=== PATIENT | male | born 1945 | race Caucasian/White ===

== ENCOUNTER 2017-06-11 11:31 | Inpatient (IN) | payer OTHER, MEDICARE ==
[~2017-06-11] VITALS: Ht 175.3 cm; Wt 68.0 kg
[2017-06-11 12:01] LABS: BASOPHILS % (AUTO) 0.1 % (0-1); EOSINOPHILS # (AUTO) 0.2 X10'3 (0-0.9); EOSINOPHILS % (AUTO) 1.5 % (0-6); HEMATOCRIT 45.9 % (42.0-52.0); HEMOGLOBIN 15.1 g/dl (14.0-17.9); LYMPHOCYTES # (AUTO) 0.7 X10'3 (1.1-4.8); LYMPHOCYTES % (AUTO) 4.4 % (21-51); MEAN CORPUSCULAR HEMOGLOBIN 27.8 PG (27.0-31.0); MEAN CORPUSCULAR VOLUME 84.3 FL (78-98); MEAN PLATELET VOLUME 8.3 FL (7.4-10.4); MONOCYTES # (AUTO) 0.7 X10'3 (0-0.9); MONOCYTES % (AUTO) 4.4 % (2-12); NEUTROPHILS # (AUTO) 14.2 X10'3 (1.8-7.7); NEUTROPHILS % (AUTO) 89.6 % (42-75); PLATELET COUNT 215 X10'3 (140-440); RED BLOOD COUNT 5.45 X10'6 (4.70-6.10); WHITE BLOOD COUNT 15.8 X10'3 (4.5-11.0)
[2017-06-11 12:12] LABS: PARTIAL THROMBOPLASTIN TIME 31 SECONDS (22-32)
[2017-06-11 12:21] LABS: CLARITY,URINE Clear (Clear); COLOR,URINE Yellow (Yellow); GLUCOSE, URINE Negative (Neg); KETONES,URINE 80 mg/dl (Neg); LEUKOCYTE ESTERASE ,URINE Negative (Neg); NITRITES, URINE Negative (Neg); OCCULT BLOOD,URINE Negative (Neg); PH,URINE 5.5 (4.8-8.0); PROTEIN,URINE Negative (Neg)
[2017-06-11 12:25] LABS: ALANINE AMINOTRANSFERASE 26 U/L (12-78); ALBUMIN 3.3 G/DL (3.4-5.0); ALBUMIN/GLOBULIN RATIO 0.7 (1.1-1.5); ALKALINE PHOSPHATASE 110 IU/L (46-116); ANION GAP 15 (8-16); ASPARTATE AMINO TRANSFERASE 26 U/L (10-37); BILIRUBIN,TOTAL 0.9 MG/DL (0.1-1.0); BLOOD UREA NITROGEN 20 MG/DL (7-18); BUN/CREATININE RATIO 23.5 (5.4-32.0); CALCIUM 9.5 MG/DL (8.5-10.1); CHLORIDE 96 MMOL/L (99-107); CREATININE 0.85 MG/DL (0.60-1.10); GLUCOSE 139 MG/DL (70-104); MAGNESIUM 1.5 MG/DL (1.5-2.4); POTASSIUM 4.1 MMOL/L (3.5-5.1); SODIUM 132 MMOL/L (135-145); TOTAL CARBON DIOXIDE 21.5 MMOL/L (24-32); TOTAL PROTEIN 7.9 G/DL (6.4-8.2); eGFR 89 ML/MIN
[2017-06-11 12:26] LABS: UA COLLECTION TYPE CLN CATCH MIDSTREAM
[2017-06-11] MEDS ORDERED: normal saline 1000ML IV soln IVB ONE (12:30)
[2017-06-11] MEDS ORDERED: benzonatate 100mg capsule PO ONE (12:30)
[2017-06-11] MEDS ORDERED: aspirin 81mg tab.chew PO ONE (12:30)
[2017-06-11 13:08] LABS: D-DIMER 12.66 MG/L FEU (0-0.50)
[2017-06-11] MEDS ORDERED: iohexol 350MG/ML 100ml bottle IV ONE (14:11)
[2017-06-11] MEDS ORDERED: azithromycin/NS 500mg/250ml 250 ML IV ONE (15:25)
[2017-06-11] MEDS ORDERED: CefTRIAXone 2gm/NS 100ml IVPB 100 ML IV ONE (15:25)
[2017-06-11] MEDS ORDERED: magnesium hydroxide 30ml (MOM) UD suspension PO PRN ×2 (16:45→17:40)
[2017-06-11] MEDS ORDERED: mag hydrox/Alum hydrox/simeth 30ml oral suspension PO PRN ×2 (16:45→17:40)
[2017-06-11] MEDS ORDERED: ondansetron/PF 4mg/2ml inj IV PRN ×2 (16:45→17:40)
[2017-06-11] MEDS ORDERED: acetaminophen 325mg tablet PO PRN ×3 (16:45→17:40)
[2017-06-11] MEDS ORDERED: morphine 4 MG/ML inj SYRINge IV PRN ×2 (17:40)
[2017-06-11] MEDS ORDERED: HYDROcodone/acetaminophen 10/325mg tab PO PRN (17:40)
[2017-06-11] MEDS ORDERED: potassium Cl 40MEQ/NS 500ml 500 ML IV PRN ×2 (17:40)
[2017-06-11] MEDS ORDERED: magnesium 4gm in 100ml NS 100 ML IV PRN (17:40)
[2017-06-11] MEDS ORDERED: magnesium Cl slow-release 64mg tablet PO PRN (17:40)
[2017-06-11] MEDS ORDERED: methylPREDNISolone sod succ 125mg/2ml vial IV ONE (17:40)
[2017-06-11] MEDS ORDERED: potassium Cl 20 mEq SR tablet PO PRN ×2 (17:40)
[2017-06-11] MEDS ORDERED: magnesium 2GM in 50ml NS 50 ML IV PRN (17:40)
[2017-06-11] MEDS ORDERED: HYDROcodone/acetaminophen 5mg/325mg tablet PO PRN (17:40)
[2017-06-11] MEDS: K and/or MAG REPLACEMENT MC SCH (17:40)
[2017-06-11 18:46] LABS: INR 1.1 INR; PROTHROMBIN TIME 11.1 SECONDS (9.0-12.0)
[2017-06-11] MEDS: ipratropium/albuterol 3ml nebule NEB SCH ×2 (18:46→23:22)
[2017-06-11 19:00] LABS: MAGNESIUM 1.4 MG/DL (1.5-2.4)
[2017-06-11] MEDS: heparin, porcine 5000 units/ml vial SQ SCH (20:04)
[2017-06-11] MEDS: normal saline 1000ml 1,000 ML IV SCH (20:07)
[2017-06-11] MEDS ORDERED: temazepam 15mg capsule PO PRN (21:00)
[2017-06-12 02:30] VITALS: BP 139/64
[2017-06-12] MEDS: ipratropium/albuterol 3ml nebule NEB SCH ×5 (02:44→23:50)
[2017-06-12] MEDS: normal saline 1000ml 1,000 ML IV SCH ×2 (03:38→10:35)
[2017-06-12 05:41] LABS: ALBUMIN 2.7 G/DL (3.4-5.0); ANION GAP 16 (8-16); BLOOD UREA NITROGEN 16 MG/DL (7-18); BUN/CREATININE RATIO 21.3 (5.4-32.0); CALCIUM 8.5 MG/DL (8.5-10.1); CHLORIDE 101 MMOL/L (99-107); CREATININE 0.75 MG/DL (0.60-1.10); GLUCOSE 161 MG/DL (70-104); INR 1.1 INR; MAGNESIUM 2.5 MG/DL (1.5-2.4); POTASSIUM 3.6 MMOL/L (3.5-5.1); PROTHROMBIN TIME 11.1 SECONDS (9.0-12.0); SODIUM 137 MMOL/L (135-145); TOTAL CARBON DIOXIDE 19.9 MMOL/L (24-32); eGFR > 90 ML/MIN
[2017-06-12 05:45] LABS: BASOPHILS % (AUTO) 0 % (0-1); EOSINOPHILS # (AUTO) 0.1 X10'3 (0-0.9); EOSINOPHILS % (AUTO) 1.1 % (0-6); HEMATOCRIT 41.3 % (42.0-52.0); HEMOGLOBIN 13.9 g/dl (14.0-17.9); LYMPHOCYTES # (AUTO) 0.3 X10'3 (1.1-4.8); LYMPHOCYTES % (AUTO) 3.1 % (21-51); MEAN CORPUSCULAR HEMOGLOBIN 28.3 PG (27.0-31.0); MEAN CORPUSCULAR HGB CONC 33.8 % (33.0-36.5); MEAN CORPUSCULAR VOLUME 83.6 FL (78-98); MEAN PLATELET VOLUME 8.9 FL (7.4-10.4); MONOCYTES # (AUTO) 0.1 X10'3 (0-0.9); MONOCYTES % (AUTO) 0.6 % (2-12); NEUTROPHILS # (AUTO) 10.9 X10'3 (1.8-7.7); NEUTROPHILS % (AUTO) 95.2 % (42-75); PLATELET COUNT 202 X10'3 (140-440); RED BLOOD COUNT 4.93 X10'6 (4.70-6.10); RED CELL DISTRIBUTION WIDTH 14.2 % (11.5-14.5); WHITE BLOOD COUNT 11.4 X10'3 (4.5-11.0)
[2017-06-12 07:01] LABS: HEMOGLOBIN A1C 6.6 % (4.5-6.2)
[2017-06-12 07:19] VITALS: BP 138/74
[2017-06-12] MEDS: K and/or MAG REPLACEMENT MC SCH (07:24)
[2017-06-12] MEDS: cefTRIAXone 1g/NS 100ml IVPB 100 ML IV SCH (07:40)
[2017-06-12] MEDS: heparin, porcine 5000 units/ml vial SQ SCH ×2 (07:46→19:55)
[2017-06-12] MEDS: azithromycin/NS 500mg/250ml 250 ML IV SCH (09:09)
[2017-06-12 11:00] VITALS: BP 128/67
[2017-06-12] MEDS ORDERED: METF750T2 PO (12:26)
[2017-06-12] MEDS ORDERED: LOSA25TA96 PO (12:29)
[2017-06-12] MEDS ORDERED: ATOR20TA PO (12:29)
[2017-06-12] MEDS: lactobacillus rhamnosus 10,000 MMU CELLS/CAPSULE PO SCH (19:54)
[2017-06-12 20:00] VITALS: BP 133/68
[2017-06-13] VITALS (7 sets, daily range): BP systolic 117–161; BP diastolic 62–90
[2017-06-13] MEDS: normal saline 1000ml 1,000 ML IV SCH ×2 (01:56→09:38)
[2017-06-13] MEDS: ipratropium/albuterol 3ml nebule NEB SCH ×6 (03:47→23:20)
[2017-06-13 04:48] LABS: BASOPHILS % (AUTO) 0.1 % (0-1); EOSINOPHILS # (AUTO) 0.3 X10'3 (0-0.9); EOSINOPHILS % (AUTO) 1.4 % (0-6); HEMATOCRIT 38.8 % (42.0-52.0); LYMPHOCYTES # (AUTO) 1.1 X10'3 (1.1-4.8); LYMPHOCYTES % (AUTO) 5.8 % (21-51); MEAN CORPUSCULAR HGB CONC 33.5 % (33.0-36.5); MEAN CORPUSCULAR VOLUME 83.7 FL (78-98); MEAN PLATELET VOLUME 8.7 FL (7.4-10.4); MONOCYTES % (AUTO) 5.7 % (2-12); PLATELET COUNT 205 X10'3 (140-440); RED BLOOD COUNT 4.64 X10'6 (4.70-6.10); RED CELL DISTRIBUTION WIDTH 14.6 % (11.5-14.5); WHITE BLOOD COUNT 18.4 X10'3 (4.5-11.0)
[2017-06-13 05:08] LABS: PROTHROMBIN TIME 10.4 SECONDS (9.0-12.0)
[2017-06-13 05:30] LABS: ALBUMIN 2.5 G/DL (3.4-5.0); ANION GAP 11 (8-16); BLOOD UREA NITROGEN 18 MG/DL (7-18); BUN/CREATININE RATIO 23.4 (5.4-32.0); CALCIUM 8.4 MG/DL (8.5-10.1); CHLORIDE 109 MMOL/L (99-107); CREATININE 0.77 MG/DL (0.60-1.10); GLUCOSE 97 MG/DL (70-104); MAGNESIUM 2.2 MG/DL (1.5-2.4); POTASSIUM 3.8 MMOL/L (3.5-5.1); SODIUM 143 MMOL/L (135-145); TOTAL CARBON DIOXIDE 22.8 MMOL/L (24-32); eGFR > 90 ML/MIN
[2017-06-13] MEDS: K and/or MAG REPLACEMENT MC SCH (07:11)
[2017-06-13] MEDS: heparin, porcine 5000 units/ml vial SQ SCH (07:42)
[2017-06-13] MEDS: azithromycin/NS 500mg/250ml 250 ML IV SCH (07:42)
[2017-06-13] MEDS: cefTRIAXone 1g/NS 100ml IVPB 100 ML IV SCH (07:42)
[2017-06-13] MEDS: lactobacillus rhamnosus 10,000 MMU CELLS/CAPSULE PO SCH ×2 (07:43→20:00)
[2017-06-13] MEDS ORDERED: furosemide 40mg/4ml inj IV ONE ×2 (12:00→17:20)
[2017-06-13 12:05] LABS: ABG BASE EXCESS -2.7 mmol/L (-2.0-3.0); ABG HCO3 21.3 mmol/L (22.0-26.0); ABG OXYGEN SATURATION 92.9 % (95-98); ABG PCO2 (T) 34.5 mmHg (35.0-48.0); ABG PH (T) 7.408 (7.350-7.450); ABG PO2 (T) 65.6 mmHg (83-108); ALLEN'S TEST Positive; FCOHb 0.2 % (0.5-1.5); FLOW 6 L/min; FMetHb 0.2 % (0.3-1.12); FO2Hb 92.5 % (94-100); TOTAL HEMOGLOBIN 13.9 G/dl (14.0-18.0)
[2017-06-13 12:09] LABS: BASOPHILS % (AUTO) 0.2 % (0-1); EOSINOPHILS # (AUTO) 0.5 X10'3 (0-0.9); EOSINOPHILS % (AUTO) 2.6 % (0-6); HEMATOCRIT 40.5 % (42.0-52.0); HEMOGLOBIN 13.6 g/dl (14.0-17.9); LYMPHOCYTES # (AUTO) 0.7 X10'3 (1.1-4.8); LYMPHOCYTES % (AUTO) 3.6 % (21-51); MEAN CORPUSCULAR HEMOGLOBIN 27.6 PG (27.0-31.0); MEAN CORPUSCULAR HGB CONC 33.6 % (33.0-36.5); MEAN CORPUSCULAR VOLUME 82.3 FL (78-98); MEAN PLATELET VOLUME 8.2 FL (7.4-10.4); MONOCYTES # (AUTO) 0.9 X10'3 (0-0.9); NEUTROPHILS # (AUTO) 16.4 X10'3 (1.8-7.7); NEUTROPHILS % (AUTO) 88.6 % (42-75); PLATELET COUNT 225 X10'3 (140-440); RED BLOOD COUNT 4.93 X10'6 (4.70-6.10); RED CELL DISTRIBUTION WIDTH 14.4 % (11.5-14.5); WHITE BLOOD COUNT 18.5 X10'3 (4.5-11.0)
[2017-06-13] MEDS ORDERED: iohexol 350MG/ML 100ml bottle IV ONE ×2 (12:16→14:45)
[2017-06-13] MEDS ORDERED: piperacillin/tazo 3.375gm/50ml 50 ML IV ONE (12:20)
[2017-06-13] MEDS ORDERED: vancomycin/NS 1 GM ADD-VANTAGE 250 ML IV ONE (12:25)
[2017-06-13 12:31] LABS: ALANINE AMINOTRANSFERASE 23 U/L (12-78); ALBUMIN 2.7 G/DL (3.4-5.0); ALBUMIN/GLOBULIN RATIO 0.7 (1.1-1.5); ALKALINE PHOSPHATASE 90 IU/L (46-116); ANION GAP 15 (8-16); ASPARTATE AMINO TRANSFERASE 24 U/L (10-37); BILIRUBIN,TOTAL 0.3 MG/DL (0.1-1.0); BLOOD UREA NITROGEN 18 MG/DL (7-18); BUN/CREATININE RATIO 27.3 (5.4-32.0); CALCIUM 8.3 MG/DL (8.5-10.1); CHLORIDE 107 MMOL/L (99-107); CREATININE 0.66 MG/DL (0.60-1.10); GLUCOSE 106 MG/DL (70-104); POTASSIUM 4.1 MMOL/L (3.5-5.1); SODIUM 145 MMOL/L (135-145); TOTAL CARBON DIOXIDE 23.2 MMOL/L (24-32); TOTAL PROTEIN 6.7 G/DL (6.4-8.2); eGFR > 90 ML/MIN
[2017-06-13 12:37] LABS: TROPONIN I 1.22 NG/ML (0.0-0.05)
[2017-06-13] MEDS ORDERED: heparin 10,000 units/1 ML INJ IV ONE (12:55)
[2017-06-13] MEDS ORDERED: aspirin 325mg tablet PO ONE (12:55)
[2017-06-13 13:49] LABS: BASOPHILS % (AUTO) 0.2 % (0-1); EOSINOPHILS # (AUTO) 0.5 X10'3 (0-0.9); EOSINOPHILS % (AUTO) 2.8 % (0-6); HEMATOCRIT 41.7 % (42.0-52.0); HEMOGLOBIN 13.9 g/dl (14.0-17.9); LYMPHOCYTES % (AUTO) 5.2 % (21-51); MEAN CORPUSCULAR HEMOGLOBIN 27.7 PG (27.0-31.0); MEAN CORPUSCULAR HGB CONC 33.4 % (33.0-36.5); MEAN PLATELET VOLUME 8.3 FL (7.4-10.4); MONOCYTES # (AUTO) 0.8 X10'3 (0-0.9); MONOCYTES % (AUTO) 4.6 % (2-12); NEUTROPHILS # (AUTO) 16.1 X10'3 (1.8-7.7); NEUTROPHILS % (AUTO) 87.2 % (42-75); PLATELET COUNT 231 X10'3 (140-440); RED BLOOD COUNT 5.03 X10'6 (4.70-6.10); RED CELL DISTRIBUTION WIDTH 14.6 % (11.5-14.5); WHITE BLOOD COUNT 18.5 X10'3 (4.5-11.0)
[2017-06-13 14:02] LABS: PARTIAL THROMBOPLASTIN TIME 28 SECONDS (22-32)
[2017-06-13] MEDS: piperacillin/tazo 3.375gm/50ml 50 ML IV SCH (19:44)
[2017-06-13] MEDS: carVEDilol 3.125mg tablet PO SCH (21:03)
[2017-06-13] MEDS: vancomycin/NS 1 GM ADD-VANTAGE 250 ML IV SCH (21:39)
[2017-06-13] MEDS: heparin 10,000 units/1 ML INJ IV PRN (22:33)
[2017-06-14] VITALS (9 sets, daily range): BP systolic 99–136; BP diastolic 47–84
[2017-06-14] MEDS: piperacillin/tazo 3.375gm/50ml 50 ML IV SCH ×4 (01:46→19:45)
[2017-06-14] MEDS: ipratropium/albuterol 3ml nebule NEB SCH ×6 (03:00→23:28)
[2017-06-14] MEDS: vancomycin/NS 1 GM ADD-VANTAGE 250 ML IV SCH ×3 (04:43→20:00)
[2017-06-14 05:24] LABS: BASOPHILS # (AUTO) 0.1 X10'3 (0-0.2); EOSINOPHILS # (AUTO) 0.5 X10'3 (0-0.9); EOSINOPHILS % (AUTO) 3.3 % (0-6); HEMATOCRIT 39.6 % (42.0-52.0); HEMOGLOBIN 13.4 g/dl (14.0-17.9); LYMPHOCYTES # (AUTO) 0.9 X10'3 (1.1-4.8); LYMPHOCYTES % (AUTO) 6.5 % (21-51); MEAN CORPUSCULAR HGB CONC 33.7 % (33.0-36.5); MEAN CORPUSCULAR VOLUME 82.9 FL (78-98); MEAN PLATELET VOLUME 8.9 FL (7.4-10.4); MONOCYTES # (AUTO) 0.8 X10'3 (0-0.9); MONOCYTES % (AUTO) 5.6 % (2-12); NEUTROPHILS # (AUTO) 11.9 X10'3 (1.8-7.7); NEUTROPHILS % (AUTO) 83.6 % (42-75); PLATELET COUNT 232 X10'3 (140-440); RED BLOOD COUNT 4.78 X10'6 (4.70-6.10); RED CELL DISTRIBUTION WIDTH 14.7 % (11.5-14.5); WHITE BLOOD COUNT 14.2 X10'3 (4.5-11.0)
[2017-06-14 05:34] LABS: PROTHROMBIN TIME 10.7 SECONDS (9.0-12.0)
[2017-06-14 05:37] LABS: ALBUMIN 2.6 G/DL (3.4-5.0); ANION GAP 12 (8-16); BLOOD UREA NITROGEN 21 MG/DL (7-18); BUN/CREATININE RATIO 24.4 (5.4-32.0); CALCIUM 8.7 MG/DL (8.5-10.1); CHLORIDE 105 MMOL/L (99-107); CREATININE 0.86 MG/DL (0.60-1.10); GLUCOSE 122 MG/DL (70-104); MAGNESIUM 1.9 MG/DL (1.5-2.4); POTASSIUM 3.7 MMOL/L (3.5-5.1); SODIUM 142 MMOL/L (135-145); TOTAL CARBON DIOXIDE 24.8 MMOL/L (24-32); eGFR 87 ML/MIN
[2017-06-14] MEDS: lactobacillus rhamnosus 10,000 MMU CELLS/CAPSULE PO SCH ×2 (07:28→19:45)
[2017-06-14] MEDS: atorvastatin 20mg tablet PO SCH (07:28)
[2017-06-14] MEDS: furosemide 40mg/4ml inj IV SCH (07:28)
[2017-06-14] MEDS: carVEDilol 3.125mg tablet PO SCH ×2 (07:29→19:45)
[2017-06-14] MEDS: lisinopril 2.5mg tablet PO SCH (07:29)
[2017-06-14] MEDS: K and/or MAG REPLACEMENT MC SCH (08:00)
[2017-06-14] MEDS ORDERED: aspirin 325mg tablet PO SCH (08:30)
[2017-06-14] MEDS ORDERED: VANCOMYCIN LEVEL IV ONE ×2 (11:30→19:30)
[2017-06-14] MEDS: heparin 10,000 units/1 ML INJ IV PRN (13:13)
[2017-06-14] MEDS ORDERED: furosemide 20 MG/2 ML vial IV ONE (15:45)
[2017-06-14] MEDS: methylPREDNISolone sod succ/PF 40mg inj. IV SCH (19:45)
[2017-06-15 01:55] LABS: ALBUMIN 2.5 G/DL (3.4-5.0); ANION GAP 11 (8-16); BASOPHILS % (AUTO) 0.2 % (0-1); BLOOD UREA NITROGEN 27 MG/DL (7-18); BUN/CREATININE RATIO 31.4 (5.4-32.0); CALCIUM 8.6 MG/DL (8.5-10.1); CHLORIDE 102 MMOL/L (99-107); CREATININE 0.86 MG/DL (0.60-1.10); EOSINOPHILS % (AUTO) 0.4 % (0-6); GLUCOSE 166 MG/DL (70-104); HEMATOCRIT 39.2 % (42.0-52.0); HEMOGLOBIN 13.1 g/dl (14.0-17.9); LYMPHOCYTES # (AUTO) 0.4 X10'3 (1.1-4.8); LYMPHOCYTES % (AUTO) 3.7 % (21-51); MAGNESIUM 1.8 MG/DL (1.5-2.4); MEAN CORPUSCULAR HEMOGLOBIN 27.9 PG (27.0-31.0); MEAN CORPUSCULAR HGB CONC 33.5 % (33.0-36.5); MEAN CORPUSCULAR VOLUME 83.3 FL (78-98); MEAN PLATELET VOLUME 8.5 FL (7.4-10.4); MONOCYTES # (AUTO) 0.1 X10'3 (0-0.9); MONOCYTES % (AUTO) 0.8 % (2-12); NEUTROPHILS # (AUTO) 10.7 X10'3 (1.8-7.7); NEUTROPHILS % (AUTO) 94.9 % (42-75); PLATELET COUNT 221 X10'3 (140-440); POTASSIUM 3.6 MMOL/L (3.5-5.1); RED BLOOD COUNT 4.71 X10'6 (4.70-6.10); RED CELL DISTRIBUTION WIDTH 14.6 % (11.5-14.5); SODIUM 139 MMOL/L (135-145); WHITE BLOOD COUNT 11.3 X10'3 (4.5-11.0); eGFR 87 ML/MIN
[2017-06-15 01:57] LABS: INR 1.1 INR
[2017-06-15 02:00] VITALS: BP 95/58
[2017-06-15] MEDS: methylPREDNISolone sod succ/PF 40mg inj. IV SCH ×4 (02:25→20:25)
[2017-06-15] MEDS: piperacillin/tazo 3.375gm/50ml 50 ML IV SCH ×4 (02:26→20:26)
[2017-06-15] MEDS: ipratropium/albuterol 3ml nebule NEB SCH ×6 (02:43→23:15)
[2017-06-15] MEDS: vancomycin/NS 1 GM ADD-VANTAGE 250 ML IV SCH ×2 (04:18→17:00)
[2017-06-15 07:00] VITALS: BP 99/49
[2017-06-15] MEDS: K and/or MAG REPLACEMENT MC SCH (08:00)
[2017-06-15] MEDS ORDERED: potassium Cl 40MEQ/NS 500ml 500 ML IV PRN ×2 (08:20)
[2017-06-15] MEDS ORDERED: potassium Cl 20 mEq SR tablet PO PRN (08:20)
[2017-06-15] MEDS ORDERED: magnesium 2GM in 50ml NS 50 ML IV PRN (08:20)
[2017-06-15] MEDS ORDERED: magnesium 4gm in 100ml NS 100 ML IV PRN (08:20)
[2017-06-15] MEDS: lisinopril 2.5mg tablet PO SCH (08:27)
[2017-06-15] MEDS: lactobacillus rhamnosus 10,000 MMU CELLS/CAPSULE PO SCH ×2 (08:27→20:25)
[2017-06-15] MEDS: atorvastatin 20mg tablet PO SCH (08:28)
[2017-06-15] MEDS: furosemide 40mg/4ml inj IV SCH (08:28)
[2017-06-15] MEDS: carVEDilol 3.125mg tablet PO SCH ×2 (08:28→20:25)
[2017-06-15] MEDS: aspirin 81mg tab.chew PO SCH (08:28)
[2017-06-15] MEDS: potassium Cl 20 mEq SR tablet PO PRN ×3 (08:40→20:25)
[2017-06-15] MEDS: magnesium Cl slow-release 64mg tablet PO PRN ×2 (08:41→20:25)
[2017-06-15 11:00] VITALS: BP 109/58
[2017-06-15 15:00] VITALS: BP 104/44
[2017-06-15 19:00] VITALS: BP 115/84
[2017-06-15 23:00] VITALS: BP 135/52
[2017-06-16] MEDS: piperacillin/tazo 3.375gm/50ml 50 ML IV SCH ×4 (01:45→20:12)
[2017-06-16] MEDS: methylPREDNISolone sod succ/PF 40mg inj. IV SCH ×4 (01:45→20:10)
[2017-06-16] MEDS: ipratropium/albuterol 3ml nebule NEB SCH ×5 (02:55→19:00)
[2017-06-16 03:00] VITALS: BP 101/50
[2017-06-16] MEDS: vancomycin/NS 1 GM ADD-VANTAGE 250 ML IV SCH ×2 (03:51→16:27)
[2017-06-16 05:36] LABS: BASOPHILS % (AUTO) 0.2 % (0-1); EOSINOPHILS # (AUTO) 0.1 X10'3 (0-0.9); EOSINOPHILS % (AUTO) 0.7 % (0-6); HEMATOCRIT 39.6 % (42.0-52.0); LYMPHOCYTES # (AUTO) 0.6 X10'3 (1.1-4.8); LYMPHOCYTES % (AUTO) 4.5 % (21-51); MEAN CORPUSCULAR HEMOGLOBIN 27.8 PG (27.0-31.0); MEAN CORPUSCULAR HGB CONC 32.8 % (33.0-36.5); MEAN CORPUSCULAR VOLUME 84.7 FL (78-98); MEAN PLATELET VOLUME 8.6 FL (7.4-10.4); MONOCYTES # (AUTO) 0.2 X10'3 (0-0.9); MONOCYTES % (AUTO) 1.3 % (2-12); NEUTROPHILS # (AUTO) 12.6 X10'3 (1.8-7.7); NEUTROPHILS % (AUTO) 93.3 % (42-75); PLATELET COUNT 229 X10'3 (140-440); RED BLOOD COUNT 4.67 X10'6 (4.70-6.10); RED CELL DISTRIBUTION WIDTH 14.5 % (11.5-14.5); WHITE BLOOD COUNT 13.5 X10'3 (4.5-11.0)
[2017-06-16 05:45] LABS: INR 1.1 INR
[2017-06-16 05:49] LABS: ALBUMIN 2.6 G/DL (3.4-5.0); ANION GAP 11 (8-16); BLOOD UREA NITROGEN 30 MG/DL (7-18); CALCIUM 8.8 MG/DL (8.5-10.1); CHLORIDE 103 MMOL/L (99-107); GLUCOSE 161 MG/DL (70-104); MAGNESIUM 2.1 MG/DL (1.5-2.4); POTASSIUM 4.3 MMOL/L (3.5-5.1); SODIUM 143 MMOL/L (135-145); TOTAL CARBON DIOXIDE 29.1 MMOL/L (24-32); eGFR 73 ML/MIN
[2017-06-16 07:00] VITALS: BP_SYST 12; BP_SYST 123; BP_DIAS 66
[2017-06-16] MEDS: K and/or MAG REPLACEMENT MC SCH (08:00)
[2017-06-16] MEDS: furosemide 40mg/4ml inj IV SCH (08:44)
[2017-06-16] MEDS: enoxaparin 40mg/0.4ml syringe SUBCUT SCH (08:45)
[2017-06-16] MEDS: lisinopril 2.5mg tablet PO SCH (08:45)
[2017-06-16] MEDS: aspirin 81mg tab.chew PO SCH (08:46)
[2017-06-16] MEDS: carVEDilol 3.125mg tablet PO SCH ×2 (08:46→20:17)
[2017-06-16] MEDS: lactobacillus rhamnosus 10,000 MMU CELLS/CAPSULE PO SCH ×2 (08:46→20:11)
[2017-06-16] MEDS: atorvastatin 20mg tablet PO SCH (08:46)
[2017-06-16 11:00] VITALS: BP 108/57
[2017-06-16 15:00] VITALS: BP 116/70
[2017-06-16] MEDS ORDERED: VANCOMYCIN LEVEL IV ONE (15:30)
[2017-06-16 19:00] VITALS: BP 119/73
[2017-06-16 23:00] VITALS: BP 116/55
[2017-06-17] MEDS: ipratropium/albuterol 3ml nebule NEB SCH ×7 (00:01→23:26)
[2017-06-17] MEDS: methylPREDNISolone sod succ/PF 40mg inj. IV SCH ×4 (01:33→23:15)
[2017-06-17] MEDS: piperacillin/tazo 3.375gm/50ml 50 ML IV SCH ×4 (01:34→19:06)
[2017-06-17 03:00] VITALS: BP 112/60
[2017-06-17] MEDS: vancomycin/NS 1 GM ADD-VANTAGE 250 ML IV SCH ×2 (03:46→15:36)
[2017-06-17 05:55] LABS: BASOPHILS % (AUTO) 0.1 % (0-1); EOSINOPHILS # (AUTO) 0.2 X10'3 (0-0.9); EOSINOPHILS % (AUTO) 1.3 % (0-6); HEMATOCRIT 36.4 % (42.0-52.0); HEMOGLOBIN 12.2 g/dl (14.0-17.9); LYMPHOCYTES # (AUTO) 0.6 X10'3 (1.1-4.8); LYMPHOCYTES % (AUTO) 3.8 % (21-51); MEAN CORPUSCULAR HEMOGLOBIN 27.7 PG (27.0-31.0); MEAN CORPUSCULAR HGB CONC 33.6 % (33.0-36.5); MEAN CORPUSCULAR VOLUME 82.4 FL (78-98); MEAN PLATELET VOLUME 8.2 FL (7.4-10.4); MONOCYTES # (AUTO) 0.3 X10'3 (0-0.9); MONOCYTES % (AUTO) 1.8 % (2-12); NEUTROPHILS # (AUTO) 15.2 X10'3 (1.8-7.7); PLATELET COUNT 213 X10'3 (140-440); RED BLOOD COUNT 4.42 X10'6 (4.70-6.10); RED CELL DISTRIBUTION WIDTH 14.5 % (11.5-14.5); WHITE BLOOD COUNT 16.3 X10'3 (4.5-11.0)
[2017-06-17 06:00] LABS: ALBUMIN 2.5 G/DL (3.4-5.0); ANION GAP 9 (8-16); BLOOD UREA NITROGEN 34 MG/DL (7-18); CALCIUM 8.3 MG/DL (8.5-10.1); CHLORIDE 103 MMOL/L (99-107); CREATININE 0.83 MG/DL (0.60-1.10); GLUCOSE 146 MG/DL (70-104); POTASSIUM 3.8 MMOL/L (3.5-5.1); SODIUM 139 MMOL/L (135-145); TOTAL CARBON DIOXIDE 26.7 MMOL/L (24-32); eGFR > 90 ML/MIN
[2017-06-17 06:30] VITALS: BP 121/64
[2017-06-17] MEDS: K and/or MAG REPLACEMENT MC SCH (08:00)
[2017-06-17] MEDS: aspirin 81mg tab.chew PO SCH (08:11)
[2017-06-17] MEDS: carVEDilol 3.125mg tablet PO SCH ×2 (08:11→19:06)
[2017-06-17] MEDS: lisinopril 2.5mg tablet PO SCH (08:13)
[2017-06-17] MEDS: atorvastatin 20mg tablet PO SCH (08:13)
[2017-06-17] MEDS: furosemide 40mg/4ml inj IV SCH (08:14)
[2017-06-17] MEDS: enoxaparin 40mg/0.4ml syringe SUBCUT SCH (08:14)
[2017-06-17] MEDS: lactobacillus rhamnosus 10,000 MMU CELLS/CAPSULE PO SCH ×2 (08:14→19:06)
[2017-06-17 11:00] VITALS: BP 133/62
[2017-06-17 15:00] VITALS: BP 129/66
[2017-06-17 19:00] VITALS: BP 137/66
[2017-06-17 23:00] VITALS: BP 130/61
[2017-06-18] MEDS: piperacillin/tazo 3.375gm/50ml 50 ML IV SCH ×2 (02:08→08:00)
[2017-06-18 03:00] VITALS: BP 121/57
[2017-06-18] MEDS: ipratropium/albuterol 3ml nebule NEB SCH ×6 (03:00→23:52)
[2017-06-18] MEDS: vancomycin/NS 1 GM ADD-VANTAGE 250 ML IV SCH (03:11)
[2017-06-18 05:11] LABS: BASOPHILS % (AUTO) 0.1 % (0-1); EOSINOPHILS # (AUTO) 0.1 X10'3 (0-0.9); EOSINOPHILS % (AUTO) 0.8 % (0-6); HEMATOCRIT 37.3 % (42.0-52.0); HEMOGLOBIN 12.4 g/dl (14.0-17.9); LYMPHOCYTES # (AUTO) 0.7 X10'3 (1.1-4.8); LYMPHOCYTES % (AUTO) 3.8 % (21-51); MEAN CORPUSCULAR HEMOGLOBIN 27.9 PG (27.0-31.0); MEAN CORPUSCULAR HGB CONC 33.3 % (33.0-36.5); MEAN CORPUSCULAR VOLUME 83.8 FL (78-98); MEAN PLATELET VOLUME 8.5 FL (7.4-10.4); MONOCYTES # (AUTO) 0.7 X10'3 (0-0.9); NEUTROPHILS % (AUTO) 91.3 % (42-75); PLATELET COUNT 215 X10'3 (140-440); RED BLOOD COUNT 4.45 X10'6 (4.70-6.10); RED CELL DISTRIBUTION WIDTH 14.6 % (11.5-14.5); WHITE BLOOD COUNT 17.5 X10'3 (4.5-11.0)
[2017-06-18 05:59] LABS: ALANINE AMINOTRANSFERASE 44 U/L (12-78); ALBUMIN 2.5 G/DL (3.4-5.0); ALBUMIN/GLOBULIN RATIO 0.7 (1.1-1.5); ALKALINE PHOSPHATASE 119 IU/L (46-116); ANION GAP 7 (8-16); ASPARTATE AMINO TRANSFERASE 33 U/L (10-37); BILIRUBIN,TOTAL 0.5 MG/DL (0.1-1.0); BLOOD UREA NITROGEN 29 MG/DL (7-18); BUN/CREATININE RATIO 33.3 (5.4-32.0); CALCIUM 8.4 MG/DL (8.5-10.1); CHLORIDE 106 MMOL/L (99-107); CREATININE 0.87 MG/DL (0.60-1.10); GLUCOSE 156 MG/DL (70-104); POTASSIUM 4.7 MMOL/L (3.5-5.1); SODIUM 143 MMOL/L (135-145); TOTAL CARBON DIOXIDE 29.7 MMOL/L (24-32); TOTAL PROTEIN 6.1 G/DL (6.4-8.2); eGFR 86 ML/MIN
[2017-06-18 07:00] VITALS: BP 131/63
[2017-06-18] MEDS: lactobacillus rhamnosus 10,000 MMU CELLS/CAPSULE PO SCH ×2 (08:00→19:51)
[2017-06-18] MEDS: enoxaparin 40mg/0.4ml syringe SUBCUT SCH (08:00)
[2017-06-18] MEDS: atorvastatin 20mg tablet PO SCH (08:00)
[2017-06-18] MEDS: K and/or MAG REPLACEMENT MC SCH (08:00)
[2017-06-18] MEDS: methylPREDNISolone sod succ/PF 40mg inj. IV SCH ×2 (08:00→19:51)
[2017-06-18] MEDS: furosemide 40mg/4ml inj IV SCH (08:00)
[2017-06-18] MEDS: lisinopril 2.5mg tablet PO SCH (08:00)
[2017-06-18] MEDS: carVEDilol 3.125mg tablet PO SCH ×2 (08:00→19:51)
[2017-06-18] MEDS: aspirin 81mg tab.chew PO SCH (09:21)
[2017-06-18 11:00] VITALS: BP 131/62
[2017-06-18] MEDS: levoFLOXACIN-Levaquin 750MG/D5 150 ML IV SCH (13:22)
[2017-06-18 15:00] VITALS: BP 127/66
[2017-06-18 19:00] VITALS: BP 140/70
[2017-06-18 23:00] VITALS: BP 127/67
[2017-06-19 03:00] VITALS: BP 145/68
[2017-06-19 06:00] VITALS: BP 150/76
[2017-06-19] MEDS: levoFLOXACIN-Levaquin 750MG/D5 150 ML IV SCH (07:08)
[2017-06-19] MEDS: lactobacillus rhamnosus 10,000 MMU CELLS/CAPSULE PO SCH ×2 (07:08→20:11)
[2017-06-19] MEDS: aspirin 81mg tab.chew PO SCH (07:08)
[2017-06-19] MEDS: carVEDilol 3.125mg tablet PO SCH ×2 (07:08→20:11)
[2017-06-19] MEDS: lisinopril 2.5mg tablet PO SCH (07:08)
[2017-06-19] MEDS: atorvastatin 20mg tablet PO SCH (07:08)
[2017-06-19] MEDS: furosemide 40mg/4ml inj IV SCH (07:08)
[2017-06-19 07:09] LABS: ALBUMIN 2.8 G/DL (3.4-5.0); ANION GAP 7 (8-16); BLOOD UREA NITROGEN 30 MG/DL (7-18); BUN/CREATININE RATIO 34.5 (5.4-32.0); CALCIUM 8.7 MG/DL (8.5-10.1); CHLORIDE 103 MMOL/L (99-107); CREATININE 0.87 MG/DL (0.60-1.10); GLUCOSE 150 MG/DL (70-104); POTASSIUM 4.2 MMOL/L (3.5-5.1); SODIUM 138 MMOL/L (135-145); TOTAL CARBON DIOXIDE 28.5 MMOL/L (24-32); eGFR 86 ML/MIN
[2017-06-19] MEDS: methylPREDNISolone sod succ/PF 40mg inj. IV SCH ×2 (07:10→20:11)
[2017-06-19] MEDS: enoxaparin 40mg/0.4ml syringe SUBCUT SCH (07:12)
[2017-06-19 07:19] LABS: BASOPHILS % (AUTO) 0.2 % (0-1); EOSINOPHILS # (AUTO) 0.2 X10'3 (0-0.9); EOSINOPHILS % (AUTO) 1.3 % (0-6); HEMATOCRIT 40.1 % (42.0-52.0); HEMOGLOBIN 13.8 g/dl (14.0-17.9); LYMPHOCYTES # (AUTO) 0.8 X10'3 (1.1-4.8); LYMPHOCYTES % (AUTO) 4.8 % (21-51); MEAN CORPUSCULAR HEMOGLOBIN 27.8 PG (27.0-31.0); MEAN CORPUSCULAR HGB CONC 34.4 % (33.0-36.5); MEAN CORPUSCULAR VOLUME 80.8 FL (78-98); MEAN PLATELET VOLUME 8.8 FL (7.4-10.4); MONOCYTES # (AUTO) 0.8 X10'3 (0-0.9); MONOCYTES % (AUTO) 4.4 % (2-12); NEUTROPHILS # (AUTO) 15.7 X10'3 (1.8-7.7); NEUTROPHILS % (AUTO) 89.3 % (42-75); PLATELET COUNT 202 X10'3 (140-440); RED BLOOD COUNT 4.95 X10'6 (4.70-6.10); RED CELL DISTRIBUTION WIDTH 14.4 % (11.5-14.5); WHITE BLOOD COUNT 17.6 X10'3 (4.5-11.0)
[2017-06-19] MEDS: ipratropium/albuterol 3ml nebule NEB SCH ×5 (07:22→23:42)
[2017-06-19] MEDS: K and/or MAG REPLACEMENT MC SCH (08:00)
[2017-06-19 11:00] VITALS: BP 126/69
[2017-06-19 15:00] VITALS: BP 122/56
[2017-06-19 18:00] VITALS: BP 141/73
[2017-06-19 22:00] VITALS: BP 133/69
[2017-06-20 02:00] VITALS: BP 132/70
[2017-06-20] MEDS: ipratropium/albuterol 3ml nebule NEB SCH ×6 (03:30→23:26)
[2017-06-20 06:35] VITALS: BP 153/69
[2017-06-20 06:35] LABS: BASOPHILS % (AUTO) 0.1 % (0-1); EOSINOPHILS % (AUTO) 0.1 % (0-6); HEMATOCRIT 40.3 % (42.0-52.0); HEMOGLOBIN 13.6 g/dl (14.0-17.9); LYMPHOCYTES # (AUTO) 0.8 X10'3 (1.1-4.8); LYMPHOCYTES % (AUTO) 5.2 % (21-51); MEAN CORPUSCULAR HEMOGLOBIN 27.9 PG (27.0-31.0); MEAN CORPUSCULAR HGB CONC 33.7 % (33.0-36.5); MEAN CORPUSCULAR VOLUME 82.6 FL (78-98); MEAN PLATELET VOLUME 8.9 FL (7.4-10.4); MONOCYTES # (AUTO) 0.5 X10'3 (0-0.9); MONOCYTES % (AUTO) 3.3 % (2-12); NEUTROPHILS # (AUTO) 14.4 X10'3 (1.8-7.7); NEUTROPHILS % (AUTO) 91.3 % (42-75); PLATELET COUNT 186 X10'3 (140-440); RED BLOOD COUNT 4.88 X10'6 (4.70-6.10); RED CELL DISTRIBUTION WIDTH 14.2 % (11.5-14.5); WHITE BLOOD COUNT 15.7 X10'3 (4.5-11.0)
[2017-06-20 07:01] LABS: ALANINE AMINOTRANSFERASE 77 U/L (12-78); ALBUMIN 2.6 G/DL (3.4-5.0); ALBUMIN/GLOBULIN RATIO 0.7 (1.1-1.5); ALKALINE PHOSPHATASE 128 IU/L (46-116); ANION GAP 8 (8-16); ASPARTATE AMINO TRANSFERASE 33 U/L (10-37); BILIRUBIN,TOTAL 0.5 MG/DL (0.1-1.0); BLOOD UREA NITROGEN 31 MG/DL (7-18); BUN/CREATININE RATIO 38.3 (5.4-32.0); CALCIUM 8.9 MG/DL (8.5-10.1); CHLORIDE 102 MMOL/L (99-107); CREATININE 0.81 MG/DL (0.60-1.10); GLUCOSE 173 MG/DL (70-104); POTASSIUM 4.7 MMOL/L (3.5-5.1); SODIUM 140 MMOL/L (135-145); TOTAL CARBON DIOXIDE 29.9 MMOL/L (24-32); TOTAL PROTEIN 6.4 G/DL (6.4-8.2); eGFR > 90 ML/MIN
[2017-06-20] MEDS: K and/or MAG REPLACEMENT MC SCH (08:00)
[2017-06-20] MEDS: aspirin 81mg tab.chew PO SCH (09:08)
[2017-06-20] MEDS: atorvastatin 20mg tablet PO SCH (09:08)
[2017-06-20] MEDS: carVEDilol 3.125mg tablet PO SCH ×2 (09:09→20:44)
[2017-06-20] MEDS: lisinopril 2.5mg tablet PO SCH (09:09)
[2017-06-20] MEDS: lactobacillus rhamnosus 10,000 MMU CELLS/CAPSULE PO SCH ×2 (09:09→20:44)
[2017-06-20] MEDS: furosemide 40mg/4ml inj IV SCH (09:10)
[2017-06-20] MEDS: enoxaparin 40mg/0.4ml syringe SUBCUT SCH (09:10)
[2017-06-20] MEDS: methylPREDNISolone sod succ/PF 40mg inj. IV SCH ×2 (09:10→20:44)
[2017-06-20] MEDS: levoFLOXACIN-Levaquin 750MG/D5 150 ML IV SCH (09:10)
[2017-06-20 11:00] VITALS: BP 117/63
[2017-06-20 15:00] VITALS: BP 126/59
[2017-06-20 18:00] VITALS: BP 117/64
[2017-06-20 22:00] VITALS: BP 135/65
[2017-06-21 02:00] VITALS: BP 130/68
[2017-06-21] MEDS: ipratropium/albuterol 3ml nebule NEB SCH ×5 (03:21→20:04)
[2017-06-21 05:19] LABS: BASOPHILS % (AUTO) 0.1 % (0-1); EOSINOPHILS # (AUTO) 0.2 X10'3 (0-0.9); EOSINOPHILS % (AUTO) 1.2 % (0-6); HEMATOCRIT 41.3 % (42.0-52.0); HEMOGLOBIN 13.7 g/dl (14.0-17.9); LYMPHOCYTES # (AUTO) 0.8 X10'3 (1.1-4.8); LYMPHOCYTES % (AUTO) 4.4 % (21-51); MEAN CORPUSCULAR HEMOGLOBIN 27.8 PG (27.0-31.0); MEAN CORPUSCULAR HGB CONC 33.2 % (33.0-36.5); MEAN CORPUSCULAR VOLUME 83.8 FL (78-98); MEAN PLATELET VOLUME 9.1 FL (7.4-10.4); MONOCYTES # (AUTO) 0.5 X10'3 (0-0.9); MONOCYTES % (AUTO) 2.7 % (2-12); NEUTROPHILS # (AUTO) 16.4 X10'3 (1.8-7.7); NEUTROPHILS % (AUTO) 91.6 % (42-75); PLATELET COUNT 189 X10'3 (140-440); RED BLOOD COUNT 4.93 X10'6 (4.70-6.10); RED CELL DISTRIBUTION WIDTH 14.3 % (11.5-14.5); WHITE BLOOD COUNT 17.9 X10'3 (4.5-11.0)
[2017-06-21 06:16] LABS: ALANINE AMINOTRANSFERASE 81 U/L (12-78); ALBUMIN 2.6 G/DL (3.4-5.0); ALBUMIN/GLOBULIN RATIO 0.7 (1.1-1.5); ALKALINE PHOSPHATASE 130 IU/L (46-116); ANION GAP 11 (8-16); ASPARTATE AMINO TRANSFERASE 28 U/L (10-37); BILIRUBIN,TOTAL 0.5 MG/DL (0.1-1.0); BLOOD UREA NITROGEN 33 MG/DL (7-18); BUN/CREATININE RATIO 35.5 (5.4-32.0); CALCIUM 8.9 MG/DL (8.5-10.1); CHLORIDE 100 MMOL/L (99-107); CREATININE 0.93 MG/DL (0.60-1.10); GLUCOSE 255 MG/DL (70-104); POTASSIUM 4.4 MMOL/L (3.5-5.1); SODIUM 138 MMOL/L (135-145); TOTAL CARBON DIOXIDE 27.1 MMOL/L (24-32); TOTAL PROTEIN 6.4 G/DL (6.4-8.2); eGFR 80 ML/MIN
[2017-06-21 07:00] VITALS: BP 126/59
[2017-06-21] MEDS: lactobacillus rhamnosus 10,000 MMU CELLS/CAPSULE PO SCH ×2 (07:39→20:18)
[2017-06-21] MEDS: methylPREDNISolone sod succ/PF 40mg inj. IV SCH ×2 (07:39→20:18)
[2017-06-21] MEDS: furosemide 40mg/4ml inj IV SCH (07:39)
[2017-06-21] MEDS: carVEDilol 3.125mg tablet PO SCH ×2 (07:39→20:18)
[2017-06-21] MEDS: levoFLOXACIN-Levaquin 750MG/D5 150 ML IV SCH (07:40)
[2017-06-21] MEDS: aspirin 81mg tab.chew PO SCH (07:40)
[2017-06-21] MEDS: atorvastatin 20mg tablet PO SCH (07:40)
[2017-06-21] MEDS: lisinopril 2.5mg tablet PO SCH (07:40)
[2017-06-21] MEDS: K and/or MAG REPLACEMENT MC SCH (08:00)
[2017-06-21] MEDS: enoxaparin 40mg/0.4ml syringe SUBCUT SCH (08:00)
[2017-06-21 11:00] VITALS: BP 106/53
[2017-06-21 15:00] VITALS: BP 118/58
[2017-06-21 19:00] VITALS: BP 137/69
[2017-06-21 23:00] VITALS: BP 124/64
[2017-06-22] MEDS: ipratropium/albuterol 3ml nebule NEB SCH ×4 (00:10→11:00)
[2017-06-22 03:00] VITALS: BP 125/70
[2017-06-22 05:33] LABS: BASOPHILS # (AUTO) 0.1 X10'3 (0-0.2); BASOPHILS % (AUTO) 0.2 % (0-1); EOSINOPHILS # (AUTO) 0.3 X10'3 (0-0.9); EOSINOPHILS % (AUTO) 1.3 % (0-6); HEMATOCRIT 41.8 % (42.0-52.0); LYMPHOCYTES # (AUTO) 0.8 X10'3 (1.1-4.8); LYMPHOCYTES % (AUTO) 3.8 % (21-51); MEAN CORPUSCULAR HEMOGLOBIN 28.2 PG (27.0-31.0); MEAN CORPUSCULAR HGB CONC 33.4 % (33.0-36.5); MEAN CORPUSCULAR VOLUME 84.4 FL (78-98); MONOCYTES # (AUTO) 0.4 X10'3 (0-0.9); MONOCYTES % (AUTO) 1.8 % (2-12); NEUTROPHILS # (AUTO) 19.9 X10'3 (1.8-7.7); NEUTROPHILS % (AUTO) 92.9 % (42-75); PLATELET COUNT 177 X10'3 (140-440); RED BLOOD COUNT 4.95 X10'6 (4.70-6.10); RED CELL DISTRIBUTION WIDTH 14.5 % (11.5-14.5); WHITE BLOOD COUNT 21.4 X10'3 (4.5-11.0)
[2017-06-22 06:00] VITALS: BP 113/56
[2017-06-22 06:00] LABS: ALANINE AMINOTRANSFERASE 85 U/L (12-78); ALBUMIN 2.8 G/DL (3.4-5.0); ALBUMIN/GLOBULIN RATIO 0.8 (1.1-1.5); ALKALINE PHOSPHATASE 124 IU/L (46-116); ANION GAP 10 (8-16); ASPARTATE AMINO TRANSFERASE 24 U/L (10-37); BILIRUBIN,TOTAL 0.6 MG/DL (0.1-1.0); BLOOD UREA NITROGEN 34 MG/DL (7-18); BUN/CREATININE RATIO 34.7 (5.4-32.0); CALCIUM 9.1 MG/DL (8.5-10.1); CHLORIDE 101 MMOL/L (99-107); CREATININE 0.98 MG/DL (0.60-1.10); GLUCOSE 220 MG/DL (70-104); POTASSIUM 4.9 MMOL/L (3.5-5.1); SODIUM 141 MMOL/L (135-145); TOTAL CARBON DIOXIDE 30.4 MMOL/L (24-32); TOTAL PROTEIN 6.5 G/DL (6.4-8.2); eGFR 75 ML/MIN
[2017-06-22 06:16] LABS: PLATELET ESTIMATE NORMAL; TOTAL CELLS COUNTED 100
[2017-06-22 07:39] VITALS: BP 120/64
[2017-06-22] MEDS: carVEDilol 3.125mg tablet PO SCH (07:40)
[2017-06-22] MEDS: aspirin 81mg tab.chew PO SCH (07:40)
[2017-06-22] MEDS: furosemide 40mg/4ml inj IV SCH (07:40)
[2017-06-22] MEDS: methylPREDNISolone sod succ/PF 40mg inj. IV SCH (07:40)
[2017-06-22] MEDS: lactobacillus rhamnosus 10,000 MMU CELLS/CAPSULE PO SCH (07:40)
[2017-06-22] MEDS: lisinopril 2.5mg tablet PO SCH (07:40)
[2017-06-22] MEDS: atorvastatin 20mg tablet PO SCH (07:40)
[2017-06-22] MEDS: levoFLOXACIN-Levaquin 750MG/D5 150 ML IV SCH (07:41)
[2017-06-22] MEDS: K and/or MAG REPLACEMENT MC SCH (07:54)
[2017-06-22] MEDS: enoxaparin 40mg/0.4ml syringe SUBCUT SCH (07:54)
[2017-06-22 11:00] VITALS: BP 113/64
[2017-06-22] MEDS ORDERED: ASPI-1265 PO (12:19)
[2017-06-22] MEDS ORDERED: LEVO750T46 PO (12:19)
[2017-06-22] MEDS ORDERED: FURO40TA4 PO (12:19)
[2017-06-22] MEDS ORDERED: COR3.125T PO (12:19)
[2017-06-22] MEDS ORDERED: PRED20TA PO (12:19)
== END 2017-06-22 14:40 | disposition home or self-care (01) | DRG 871 ==
LOC: ER 11:32 → ED HOLD 17:38 → SUR 3N 06-12 02:10 → PCU 3S 06-13 14:20
PROVIDERS: ADMIT Internal Medicine; ATTEND Family Medicine
PROC: B3201ZZ Computerized Tomography (CT Scan) of Thoracic Aorta using Low Osmolar Contrast (ICD-10-PCS; 2017-06-11)
PROC: 5A09457 Assistance with Respiratory Ventilation, 24-96 Consecutive Hours, Continuous Positive Airway Pressure (ICD-10-PCS; principal; 2017-06-13)
PROC: B3201ZZ Computerized Tomography (CT Scan) of Thoracic Aorta using Low Osmolar Contrast (ICD-10-PCS; 2017-06-13)
DX: A41.9 Sepsis, unspecified organism (principal); I21.4 Non-ST elevation (NSTEMI) myocardial infarction; J96.01 Acute respiratory failure with hypoxia; I50.31 Acute diastolic (congestive) heart failure; J18.9 Pneumonia, unspecified organism; C79.51 Secondary malignant neoplasm of bone; I11.0 Hypertensive heart disease with heart failure; E11.9 Type 2 diabetes mellitus without complications; M84.48XA Pathological fracture, other site, initial encounter for fracture; J44.0 Chronic obstructive pulmonary disease with (acute) lower respiratory infection; J44.1 Chronic obstructive pulmonary disease with (acute) exacerbation; E78.00 Pure hypercholesterolemia, unspecified; E78.5 Hyperlipidemia, unspecified; Z79.899 Other long term (current) drug therapy; Z87.891 Personal history of nicotine dependence
CPT/HCPCS: 36415; 36600; 71045; 71275; 80048; 80053; 80202; 81003; 82803; 82948; 83036; 83605; 83735; 83880; 84443; 84484; 85018; 85025; 85379; 85610; 85730; 87040; 87070; 93005; 93306; 94640; 94660; 94668; 94760; 96361; 96365; 97110; 97116; 97161; 99285; J0456; J0696; J1644; J1650; J1940; J1956; J2270; J2543; J2920; J2930; J3370; J3475; J7030; Q9967